=== PATIENT | female | born 1955 | race Caucasian/White ===

== ENCOUNTER 2019-09-15 20:08 | Emergency (ER) | payer OTHER ==
[2019-09-15 20:47] LABS: Appearance,Urine Clear (Clear); Bilirubin,Urine Negative (Negative); Blood,Urine Negative (Negative); Color,Urine Colorless; Glucose,Urine (UA) Negative (Negative); Ketones,Urine Negative (Negative); Leukocyte Esterase,Urine Negative (Negative); Nitrite,Urine Negative (Negative); PH, Urine 6.5 (5.0-8.0); Protein,Urine Negative (Negative); Specific Gravity,Urine 1.006 (1.001-1.035); Urobilinogen,Urine <2.0 mg/dL (<2.0)
[2019-09-15 21:06] LABS: Amphetamine Screen,Urine Not Detected (NotDetected); Barbiturate Screen,Urine Not Detected (NotDetected); Benzodiazepines Screen,Urine Not Detected (NotDetected); Cocaine Screen,Urine Not Detected (NotDetected); Methadone Screen, Urine Not Detected (NotDetected); Opiate Screen,Urine Not Detected (NotDetected); Oxycodone Screen, Urine Not Detected (NotDetected); Phencyclidine Screen,Urine Not Detected (NotDetected); Tricyclic Antidepressant,Urine Not Detected (NotDetected); Urn Cannabinoid Scrn Not Detected (NotDetected)
--- NOTE | 2019-09-15 22:19 | ED ---
General Adult HPI - General Chief complaint: Psychiatric Symptoms Stated complaint: mental health Time Seen by Provider: 09/15/19 20:16 Source: patient, RN notes reviewed, old records reviewed Mode of arrival: ambulatory Limitations: no limitations - History of Present Illness Initial comments: 64-year-old female patient with past history significant for reported diagnosis of bipolar approximately 27 years ago has not been on medications presents ED for evaluation at request of son. Patient son reports that patient broke up with her , drove from [place] and he believes that she is acting manic. Patient denies any complaints at this time. Denies any suicidal or homicidal ideations. Denies any physical complaints. Reports that she is stressed due to her breakup with her and has been having difficult time sleeping. States that she is very anxious. Denies any actions to hurt herself. Systemic: Pt denies fatigue, fever/chills, rash. Pt denies weakness, night sweats, weight loss. Neuro: Pt denies headache, visual disturbances, syncope or pre-syncope. HEENT: Pt denies ocular discharge or irritation, otalgia, rhinorrhea, phar yngitis or notable lymphadenopathy. Cardiopulmonary: Pt denies chest pain, SOB, heart palpitations, dyspnea on exertion. Abdominal/GI: Pt denies abdominal pain, n/v/d. : Pt denies dysuria, burning w/ urination, frequency/urgency. Denies new onset urinary or bowel incontinence. MSK: Pt denies myalgia, loss of strength or function in extremities. Neuro: Pt denies new onset weakness, paresthesias. - Related Data Allergies Allergy/AdvReac Type Severity Reaction Status Date / Time No Known Allergies Allergy Verified 09/15/19 20:15 Review of Systems ROS Statement: Those systems with pertinent positive or pertinent negative responses have been documented in the HPI. ROS Other: All systems not noted in ROS Statement are negative. Past Medical History Past Medical History: No Reported History History of Any Multi-Drug Resistant Organisms: None Reported Past Surgical History: No Surgical Hx Reported Past Psychological History: Panic Disorder Smoking Status: Never smoker Past Alcohol Use History: None Reported Past Drug Use History: None Reported General Exam - General Exam Comments Initial Comments: Constitutional: NAD, AOX3, Pt has pleasant affect. HEENT: NC/AT, trachea midline, neck supple, no lymphadenopathy. Posterior pharynx non erythematous, without exudates. External ears appear normal, without discharge. Mucous membranes moist. Eyes PERRLA, EOM intact. There is no scleral icterus. No pallor noted. Cardiopulmonary: RRR, no murmurs, rubs or gallops, no JVD noted. Lungs CTAB in anterior and posterior asher. No peripheral edema. Abdominal exam: Abdomen soft and non-distended. Abdomen non-tender to palpation in all 4 quadrants. Bowel sounds active in LLQ. No hepatosplenomegaly. No ecchymosis Neuro: CN II-XII intact. No nuchal rigidity. No raccon eyes, no melgar sign, no hemotympanum. No cervical spinal tenderness. MSK: No posterior calf tenderness bilaterally, homans sign negative bilaterally. Posterior tibialis and radial pulse +2 bilaterally. Sensation intact in upper and lower extremities. Full active ROM in upper and lower extremities, 5/5 stregnth. Limitations: no limitations Course Vital Signs 09/15/19 20:09 Temperature 98.2 F Pulse Rate 87 Respiratory 20 Rate Blood Pressure 181/84 O2 Sat by Pulse 97 Oximetry Medical Decision Making - Medical Decision Making 64-year-old female patient with past history significant for reported diagnosis of bipolar approximately 27 years ago has not been on medications presents ED for evaluation at request of son. Patient son reports that patient broke up with her , drove from [place] and he believes that she is acting manic. Patient denies any complaints at this time. Denies any suicidal or homicidal ideations. Denies any physical complaints. Reports that she is stressed due to her breakup with her and has been having difficult time sleeping. States that she is very anxious. Denies any actions to hurt herself. Pt VS displayed mild hypertension which she states is secondary to stress. She will monitor and follow up with PCP. Physical exam did not display acute pathology. Neurologic exam is intact. UA, tox screen is negative. That was negative. Case was evaluated by emergency psychiatric services who discussed case with on-call psychiatrist and feel the patient does not meet requirement for inpatient. Patient was given resources the patient states that she'll follow up with therapist that she sees. Patient states that she has a safe place to go and will be transported by son. She'll use melatonin to help her sleep. Will monitor blood pressure and will follow-up with primary care provider or return to ER if condition worsens. Case discussed in depth with Dr. Dave. - Lab Data Lab Results 09/15/19 09/15/19 Range/Units 20:25 20:25 Urine Color Colorless Urine Appearance Clear (Clear) Urine pH 6.5 (5.0-8.0) Ur Specific [place] 1.006 (1.001-1.035) Urine Protein Negative (Negative) Urine Glucose (UA) Negative (Negative) Urine Ketones Negative (Negative) Urine Blood Negative (Negative) Urine Nitrite Negative (Negative) Urine Bilirubin Negative (Negative) Urine Urobilinogen <2.0 (<2.0) mg/dL Ur Leukocyte Esterase Negative (Negative) Urine Opiates Screen Not Detected (NotDetected) Ur Oxycodone Screen Not Detected (NotDetected) Urine Methadone Screen Not Detected (NotDetected) Ur Propoxyphene Screen Not Detected (NotDetected) Ur Barbiturates Screen Not Detected (NotDetected) U Tricyclic Antidepress Not Detected (NotDetected) Ur Phencyclidine Scrn Not Detected (NotDetected) Ur Amphetamines Screen Not Detected (NotDetected) U Methamphetamines Scrn Not Detected (NotDetected) U Benzodiazepines Scrn Not Detected (NotDetected) Urine Cocaine Screen Not Detected (NotDetected) U Marijuana (THC) Screen Not Detected (NotDetected) Disposition Clinical Impression: History of psychiatric disorder, Anxiety Disposition: HOME SELF-CARE Condition: Stable Instructions (If sedation given, give patient instructions): Anxiety (ED) Additional Instructions: Follow-up with primary care provider and psychiatric resources tomorrow. Return to ER if condition worsens in any way. Monitor blood pressure at home, follow up with PCP in regards to elevated blood pressure readings. Is patient prescribed a controlled substance at d/c from ED?: No Referrals: None,Stated [Primary Care Provider] - 1-2 days
[2019-09-15 22:34] VITALS: BP 154/97; PULSE 90; RESP 18; TEMP 97.8
== END 2019-09-15 22:34 | disposition home or self-care (01) ==
LOC: EC 20:08
DX: F41.9 Anxiety disorder, unspecified (principal); Z86.59 Personal history of other mental and behavioral disorders; I10 Essential (primary) hypertension; Z63.5 Disruption of family by separation and divorce
CPT/HCPCS: 80306; 81003; 82075; 99284